=== PATIENT | male | born 2000 | race Caucasian/White ===

== ENCOUNTER 2019-02-03 18:01 | Emergency (ER) | payer BC ==
[~2019-02-03] VITALS: Ht 172.7 cm; Wt 72.6 kg
[2019-02-03 18:25] VITALS: BP 121/71
[2019-02-03] MEDS ORDERED: DEXAMETHASONE 4 MG TABLET PO ONE (19:00)
[2019-02-03 19:33] LABS: MONONUCLEOSIS PATIENT NEGATIVE (NEGATIVE)
[2019-02-03] MEDS ORDERED: LEVO500T59 PO (19:45)
--- NOTE | 2019-02-03 19:45 | PHYS DOC ---
Past History Past Medical History: No Pertinent History Past Surgical History: No Surgical History Smoking: Non-smoker Alcohol Use: Rarely Drug Use: None Adult General Chief Complaint Chief Complaint: SORE THROAT HPI HPI [id number] male presents with 1 month history of sore throat. Patient reports he is a been on several antibiotic and steroid therapies without improvement. Reports most recently finished a course of azithromycin and prednisone. Patient previously had also been on amoxicillin and Medrol Dosepak. Patient reports once steroids and antibiotics and his symptoms return. Denies any fever or chills. Denies known sick contacts. Reports his only been tested for strep throat. P atient does report sensation that something is dripping down the back of his throat. Denies nasal congestion. Review of Systems Review of Systems Constitutional: Denies fever or chills Eyes: Denies redness or eye pain HENT: Denies nasal congestion; reports sore throat Respiratory: Denies cough or shortness of breath Cardiovascular: Denies chest pain or palpitations GI: Denies abdominal pain, nausea, or vomiting : Denies dysuria or hematuria Musculoskeletal: Denies back pain or joint pain Integument: Denies rash or skin lesions Neurologic: Denies headache, focal weakness or sensory changes Complete systems were reviewed and found to be within normal limits, except as documented in this note. Current Medications Current Medications Current Medications Medications (Trade) Dose Ordered Sig/Patrick Start Time Stop Time Status Last Admin Dose Admin Dexamethasone (Decadron) 10 mg 1X ONCE 02/03/19 19:00 02/03/19 19:01 DC 02/03/19 19:14 10 MG Allergies Allergies Allergies Coded Allergies Type Severity Reaction Last Updated Verified No Known Drug Allergies 02/03/19 No Physical Exam Physical Exam Constitutional: Well developed, well nourished, no acute distress, non-toxic appearance HENT: Normocephalic, atraumatic, oropharynx moist, pharyngeal erythema without exudate noted, postnasal drip appreciated, nasal turbinates enlarged and erythematous Eyes: Conjunctiva normal, no discharge Neck: Normal range of motion, no tenderness, supple Cardiovascular: Heart rate normal, regular rhythm Lungs & Thorax: Bilateral breath sounds clear to auscultation, no wheezing Abdomen: Soft, no tenderness Skin: Warm, dry, no erythema, no rash Extremities: No tenderness, ROM intact, no edema Neurologic: Alert and oriented X 3, no focal deficits noted Psychologic: Affect normal, judgement normal Current Patient Data Vital Signs Vital Signs Date Time Temp Pulse Resp B/P (MAP) Pulse Ox O2 Delivery O2 Flow Rate FiO2 02/03/19 18:25 98.7 91 20 98 Room Air Lab Results Laboratory Tests Test 02/03/19 18:05 02/03/19 18:50 Group A Streptococcus Rapid Negative (NEGATIVE) Heterophil Agglutinins Negative (NEGATIVE) EKG EKG [] Radiology/Procedures Radiology/Procedures [] Course & Med Decision Making Course & Med Decision Making Pertinent Labs studies reviewed. (See chart for details) Patient presents with one-month history of pharyngitis. Physical exam notes erythema without exudate and findings concerning for postnasal drip. Nasal turbinates enlarged and erythematous. Symptomatic treatment provided with oral steroid. Rapid strep negative. Monospot also negative. We will initiate empiric antibiotic therapy with Levaquin. Patient stable for discharge with outpatient follow-up with PCP/ENT. Discussed findings and plan with patient and friend, who acknowledge understanding and agreement. Dragon Disclaimer Dragon Disclaimer This electronic medical record was generated, in whole or in part, using a voice recognition dictation system. Departure Departure: Impression: Primary Impression: Pharyngitis Additional Impression: Sinusitis Disposition: 01 HOME, SELF-CARE Condition: STABLE Referrals: PCP,UNKNOWN (PCP) Patient Instructions: Sinusitis, [id number], Viral and Bacterial Pharyngitis, [id number] Scripts Levofloxacin (LEVAQUIN) 500 Mg Tablet 500 MG PO QD for Sinusitis/Pharyngitis, #7 TAB Prov: HILTON ZAPATA DO 02/03/19 Problem Qualifiers Primary Impression: Pharyngitis Pharyngitis/tonsillitis etiology: unspecified etiology Qualified Codes: J02.9 - Acute pharyngitis, unspecified Additional Impression: Sinusitis Sinusitis location: unspecified location Chronicity: acute Recurrence: not specified as recurrent Qualified Codes: J01.90 - Acute sinusitis, unspecified HILTON ZAPATA DO Feb 03, 2019 19:45
[2019-02-03] MEDS ORDERED: levoFLOXacin 500 MG TABLET PO ONE (20:00)
== END 2019-02-03 19:52 | disposition home or self-care (01) ==
LOC: ER 18:01
DX: J02.9 Acute pharyngitis, unspecified (principal); J01.90 Acute sinusitis, unspecified
CPT/HCPCS: 86308; 87070; 87880; 99284; J8540

== ENCOUNTER 2019-03-03 17:08 | Emergency (ER) | payer BC ==
[~2019-03-03] VITALS: Ht 175.3 cm; Wt 70.3 kg
[2019-03-03 17:08] VITALS: BP 116/73
[~2019-03-03 17:08] MED LIST: LEVO500T59 PO
[2019-03-03] MEDS ORDERED: PRED50TA PO (17:33)
[2019-03-03] MEDS ORDERED: AMOX1TAB61 PO (17:33)
--- NOTE | 2019-03-03 17:39 | PHYS DOC ---
Past History Past Medical History: No Pertinent History Past Surgical History: No Surgical History Smoking: Non-smoker Alcohol Use: Rarely Drug Use: None Adult General Chief Complaint Chief Complaint: SORE THROAT HPI HPI Patient is a [18-year-old sore throat left tonsil swelling and pain subjective fever felt chills has had this on and off for the last 2 or 3 months he has been on azithromycin and Levaquin last hematocrit was about a month ago he saw an ENT specialist in [place] who thought he might have mono but the blood test came back negative for that. Patient was doing pretty well and then was under a lot of stress last week not sleeping Review of Systems Review of Systems Constitutional: Eyes: Denies change in visual acuity, redness, or eye pain [] HENT: Denies nasal congestion Musculoskeletal: Denies back pain or joint pain [] Integument: Denies rash or skin lesions [] Neurologic: All other systems were reviewed and found to be within normal limits, except as documented in this note. Allergies Allergies Allergies Coded Allergies Type Severity Reaction Last Updated Verified No Known Drug Allergies 02/03/19 No Physical Exam Physical Exam Constitutional: Well developed, well nourished, no acute distress, non-toxic appearance. [] HENT: There is asymmetric tonsillar swelling on the left there is some erythema no exudate uvula is in the midline there is really no fluctuance visible. Air ways patent no hot potato voice no trismus no drooling anterior cervical lymphadenopathy is noted there is no posterior lymphadenopathy appreciated Eyes: PERRLA, EOMI, conjunctiva normal, no discharge. [] Neck: Normal range of motion, no tenderness, supple, no stridor. [] Cardiovascular:Heart rate regular rhythm, no murmur [] Lungs & Thorax: Bilateral breath sounds clear to auscultation [] Abdomen: Bowel sounds normal, soft, no tenderness, no masses, no pulsatile masses. [] Skin: Warm, dry, no erythema, no rash. [] Back: No tenderness, no CVA tenderness. [] Extremities: No tenderness, no cyanosis, no clubbing, ROM intact, no edema. [] Neurologic: Alert and oriented X 3, normal motor function, normal sensory function, no focal deficits noted. [] Psychologic: Affect normal, judgement normal, mood normal. [] Current Patient Data Vital Signs Blood pressure normal see nurses note for complete vitals EKG EKG [] Radiology/Procedures Radiology/Procedures [] Course & Med Decision Making Course & Med Decision Making Pertinent Labs and Imaging studies reviewed. (See chart for details) []Appears to have asymmetric tonsillitis I do not appreciate clinical evidence of peritonsillar abscess at this time but I think patient warrants antibiotics and steroid medication he was prescribed these and recommended rest hydrated gradual return to activity follow-up back up with ENT specialist upon return home he lives out near [place] he'll be going home in the next few days after getting done with finals here at [facility] Disclaimer [facility] Disclaimer This electronic medical record was generated, in whole or in part, using a voice recognition dictation system. Departure Departure: Impression: Primary Impression: Tonsillitis Disposition: 01 HOME, SELF-CARE Condition: STABLE Patient Instructions: Tonsillitis, [id number] Scripts Prednisone (PREDNISONE) 50 Mg Tablet 1 TAB PO DAILY for tonsillitis, #5 TAB Prov: LISA GRIFFITHS MD 03/03/19 Amoxicillin/Potassium Clav (AUGMENTIN 875-125 TABLET) 1 Each Tablet 1 TAB PO BID for tonisillitis for 10 Days, #20 TAB 0 Refills Prov: LISA GRIFFITHS MD 03/03/19 LISA GRIFFITHS MD Mar 03, 2019 17:39
== END 2019-03-03 17:38 | disposition home or self-care (01) ==
LOC: ER 17:08
DX: J03.90 Acute tonsillitis, unspecified (principal)
CPT/HCPCS: 99283

== ENCOUNTER 2019-03-04 23:51 | Emergency (ER) | payer BC ==
[~2019-03-04] VITALS: Ht 175.3 cm; Wt 70.3 kg
[~2019-03-04 23:51] MED LIST changes: +AMOX1TAB61 PO; +PRED50TA PO
[2019-03-05] MEDS ORDERED: IOHEXOL 300 MG/ML 75 ML VIAL. IV ONE (00:30)
[2019-03-05] MEDS ORDERED: IV NORMAL SALINE 1,000ML 1,000 ML IV ONE (00:30)
[2019-03-05] MEDS ORDERED: methylPREDNISolone SOD SUCC PF 125 MG/2 ML VIAL. IV ONE (00:30)
[2019-03-05] MEDS ORDERED: CONTRAST GIVEN MC PRN (00:30)
[2019-03-05] MEDS ORDERED: AMPICILLIN/SULBACTAM 3 GM in IV NORMAL SALINE 100ML 100 ML IV ONE (00:30)
[2019-03-05] MEDS ORDERED: KETOROLAC 15 MG/ML VIAL. IV ONE (00:30)
[2019-03-05] MEDS ORDERED: IV NORMAL SALINE 100ML 100 ML ONE (00:52)
[2019-03-05] MEDS ORDERED: AMPICILLIN/SULBACTAM 1.5 GM VIAL. IV ONE (00:52)
[2019-03-05 00:55] LABS: BASO % 0 % (0-3); EOS % 0 % (0-3); HEMATOCRIT 43.3 % (39.0-53.0); HEMOGLOBIN 14.4 g/dL (13.0-17.5); LYMPH # 2.5 x10^3/uL (1.0-4.8); LYMPH % 20 % (24-48); MEAN CORPUSCULAR HEMOGLOBIN 29 pg (25-35); MEAN CORPUSCULAR HGB CONC 33 g/dL (31-37); MEAN CORPUSCULAR VOLUME 88 fL (79-100); MONO % 8 % (0-9); NEUT # 9.2 x10^3uL (1.8-7.7); NEUT % 72 % (31-73); PLATELET COUNT 267 x10^3/uL (140-400); RED BLOOD COUNT 4.95 x10^6/uL (4.30-5.70); RED CELL DISTRIBUTION WIDTH 13.4 % (11.5-14.5); WHITE BLOOD COUNT 12.8 x10^3/uL (4.0-11.0)
--- NOTE | 2019-03-05 01:04 | RAD ---
Examination: CT neck with contrast History: Sore throat, swelling Technique: Axial helical images of the neck were obtained after the administration of IV contrast. Coronal and sagittal reconstruction was performed for a CT soft tissues neck with contrast. Exposure: One or more of the following individualized dose reduction techniques were utilized for this examination: 1. Automated exposure control 2. Adjustment of the mA and/or kV according to patient size 3. Use of iterative reconstruction technique Findings: There is a 3.1 x 3.3 cm fluid density identified in the left peritonsillar region likely peritonsillar abscess. Enlarged appearing bilateral tonsils. The piriform sinuses, vallecula grossly appears unremarkable. Vocal cord grossly appears unremarkable The visualized thyroid gland grossly appears unremarkable Multiple enlarged bilateral cervical lymph nodes identified measuring up to 2.4 cm in the right and left neck likely cervical lymphadenopathy. Apical lungs are clear. No evidence of lytic bony destructive lesion. Small mucous changes cyst or polyp identified in the left maxillary sinus. The mastoid air cells are clear. IMPRESSION: 1. A 3.3 cm fluid collection identified in the left peritonsillar region likely peritonsillar abscess. Enlarged appearing bilateral tonsils probably tonsillitis. 2. Enlarged bilateral cervical lymph nodes likely reactive lymphadenopathy. Electronically signed by: Charli Contreras MD (03/05/2019 1:02 AM) [facility]
[2019-03-05 01:06] LABS: MONONUCLEOSIS PATIENT POSITIVE (NEGATIVE)
[2019-03-05 01:13] LABS: ALBUMIN 3.4 g/dL (3.4-5.0); ALBUMIN/GLOBULIN RATIO 0.7 (1.0-1.7); CALCIUM 9.1 mg/dL (8.5-10.1); CREATININE 0.8 mg/dL (0.7-1.3); GFR 124.5; POTASSIUM 3.8 mmol/L (3.5-5.1); TOTAL BILIRUBIN 0.4 mg/dL (0.2-1.0)
[2019-03-05 01:41] VITALS: BP 124/73
--- NOTE | 2019-03-05 02:00 | PHYS DOC ---
Past History Past Medical History: Other Additional Past Medical Histor: mononucleosis Past Surgical History: No Surgical History Smoking: Non-smoker Alcohol Use: Occasionally Drug Use: None Adult General Chief Complaint Chief Complaint: SORE THROAT HPI HPI Patient is a 18-year-old male presenting with chief complaint of sore throat. He says his left tonsil is much more swollen than it has been before I saw him y esterday in the emergency room I gave him Augmentin he said since that time it is getting much more swollen it's more painful when he lays down to sleep he keeps waking up coughing and choking on his saliva he feels warm Of note he went to [place] a few weeks back when he was home for [facility] and had a test that was negative for mono spot apparently he has been on this is now his third round of antibiotics. Review of Systems Review of Systems Constitutional: Eyes: Denies change in visual acuity, redness, or eye pain [] HENT: Cardiovascular: No additional information not addressed in HPI [] GI: Denies abdominal pain, nausea, vomiting, bloody stools or diarrhea [] : Denies dysuria or hematuria [] Musculoskeletal: Denies back pain or joint pain [] Integument: Denies rash or skin lesions [] Neurologic: Denies headache, focal weakness or sensory changes [] Endocrine: Denies polyuria or polydipsia [] All other systems were reviewed and found to be within normal limits, except as documented in this note. Current Medications Current Medications Current Medications Medications (Trade) Dose Ordered Sig/Patrick Start Time Stop Time Status Last Admin Dose Admin Ampicillin Sodium/ Sulbactam Sodium (Unasyn) 1.5 gm STK-MED ONCE 03/05/19 00:52 03/05/19 00:52 DC Ampicillin Sodium/ Sulbactam Sodium 3 gm/Sodium Chloride 100 ml @ 200 mls/hr 1X ONCE 03/05/19 00:30 03/05/19 00:59 DC 03/05/19 01:04 200 MLS/HR Info (Do NOT chart on this entry -- for MONITORING) 1 each PRN DAILY PRN 03/05/19 00:30 03/07/19 00:29 Iohexol (Omnipaque 300 Mg/ml) 70 ml 1X ONCE 03/05/19 00:30 03/05/19 00:31 DC 03/05/19 00:40 70 ML Ketorolac Tromethamine (Toradol 15mg Vial) 15 mg 1X ONCE 03/05/19 00:30 03/05/19 00:31 DC 03/05/19 01:04 15 MG Methylprednisolone Sodium Succinate (SOLU-Medrol 125MG VIAL) 125 mg 1X ONCE 03/05/19 00:30 12 00:31 DC 03/05/19 01:04 125 MG Sodium Chloride 100 ml @ As Directed STK-MED ONCE 03/05/19 00:52 03/05/19 00:53 DC Allergies Allergies Allergies Coded Allergies Type Severity Reaction Last Updated Verified No Known Drug Allergies 02/03/19 No Physical Exam Physical Exam Constitutional: Well developed, well nourished, no acute distress, non-toxic appearance. [] HENT: Normocephalic, atraumatic, bilateral external ears normal, there is asymmetric swelling of the left tonsillar pillar with some visible visible fluctuance the uvula is deviated to the right there is no strider really no sign ificant trismus but there is a mild hot potato voice Neck: Normal range of motion, no tenderness, supple, no stridor. [] Cardiovascular:Heart rate regular rhythm, no murmur [] Lungs & Thorax: Bilateral breath sounds clear to auscultation [] Abdomen: Bowel sounds normal, soft, no tenderness, no masses, no pulsatile masses. [] Skin: Warm, dry, no erythema, no rash. [] Back: No tenderness, no CVA tenderness. [] Extremities: No tenderness, no cyanosis, no clubbing, ROM intact, no edema. [] Neurologic: Alert and oriented X 3, normal motor function, normal sensory function, no focal deficits noted. [] Psychologic: Affect normal, judgement normal, mood normal. [] Current Patient Data Vital Signs Vital Signs Date Time Temp Pulse Resp B/P (MAP) Pulse Ox O2 Delivery O2 Flow Rate FiO2 03/05/19 01:41 96 16 124/73 (90) 98 Room Air 03/04/19 23:54 100.4 Lab Results Laboratory Tests Test 03/05/19 00:25 03/05/19 00:31 White Blood Count 12.8 x10^3/uL (4.0-11.0) H Red Blood Count 4.95 x10^6/uL (4.30-5.70) Hemoglobin 14.4 g/dL (13.0-17.5) Hematocrit 43.3 % (39.0-53.0) Mean Corpuscular Volume 88 fL (79-100) Mean Corpuscular Hemoglobin 29 pg (25-35) Mean Corpuscular Hemoglobin Concent 33 g/dL (31-37) Red Cell Distribution Width 13.4 % (11.5-14.5) Platelet Count 267 x10^3/uL (140-400) Neutrophils (%) (Auto) 72 % (31-73) Lymphocytes (%) (Auto) 20 % (24-48) L Monocytes (%) (Auto) 8 % (0-9) Eosinophils (%) (Auto) 0 % (0-3) Basophils (%) (Auto) 0 % (0-3) Neutrophils # (Auto) 9.2 x10^3uL (1.8-7.7) H Lymphocytes # (Auto) 2.5 x10^3/uL (1.0-4.8) Monocytes # (Auto) 1.0 x10^3/uL (0.0-1.1) Eosinophils # (Auto) 0.0 x10^3/uL (0.0-0.7) Basophils # (Auto) 0.0 x10^3/uL (0.0-0.2) Sodium Level 137 mmol/L (136-145) Potassium Level 3.8 mmol/L (3.5-5.1) Chloride Level 100 mmol/L (98-107) Carbon Dioxide Level 27 mmol/L (21-32) Anion Gap 10 (6-14) Blood Urea Nitrogen 12 mg/dL (8-26) Creatinine 0.8 mg/dL (0.7-1.3) Estimated GFR (Cockcroft-Gault) 124.5 BUN/Creatinine Ratio 15 (6-20) Glucose Level 102 mg/dL (70-99) H Calcium Level 9.1 mg/dL (8.5-10.1) Total Bilirubin 0.4 mg/dL (0.2-1.0) Aspartate Amino Transferase (AST) 25 U/L (15-37) Alanine Aminotransferase (ALT) 107 U/L (16-63) H Alkaline Phosphatase 167 U/L (46-116) H Total Protein 8.0 g/dL (6.4-8.2) Albumin 3.4 g/dL (3.4-5.0) Albumin/Globulin Ratio 0.7 (1.0-1.7) L Heterophil Agglutinins Positive (NEGATIVE) Group A Streptococcus Rapid Negative (NEGATIVE) EKG EKG [] Radiology/Procedures Radiology/Procedures []IMPRESSION: 1. A 3.3 cm fluid collection identified in the left peritonsillar region likely peritonsillar abscess. Enlarged appearing bilateral tonsils probably tonsillitis. 2. Enlarged bilateral cervical lymph nodes likely reactive lymphadenopathy. Electronically signed by: Charli Contreras MD (03/05/2019 1:02 AM) [facility] DICTATED AND SIGNED BY: CHARLI CONTRERAS MD DATE: 03/05/19101 CC: LISA GRIFFITHS MD; PCP,UNKNOWN ~ Course & Med Decision Making Course & Med Decision Making Pertinent Labs and Imaging studies reviewed. (See chart for details) []18-year-old male presenting with peritonsillar abscess I called [facility] I spoke wi th the triage coordinator there and we received an accepting doctor SANTIAGO Patient received multiple medications in the emergency room patient's mother was on the telephone and I talked about the patient and her about the treatment plan and they're in agreement patient's airway stable for transfer at this time in addition the Monospot did come back abnormal I notified the patient of this and the importance to avoid contact sports for the next 4-6 weeks Dragon Disclaimer Dragon Disclaimer This electronic medical record was generated, in whole or in part, using a voice recognition dictation system. Departure Departure: Impression: Primary Impression: Peritonsillar abscess Disposition: XFER SHT-TRM HOSP Condition: STABLE Referrals: PCP,UNKNOWN (PCP) LISA GRIFFITHS MD Mar 05, 2019 02:00
== END 2019-03-05 02:16 | disposition short-term general hospital (02) ==
LOC: ER 23:51
DX: J36 Peritonsillar abscess (principal)
CPT/HCPCS: 36415; 70491; 80053; 85025; 86308; 87070; 87880; 96365; 96375; 99285; J0295; J1885; J2930; Q9967; J7030